=== PATIENT | male | born 1980 ===

== ENCOUNTER 2017-03-26 14:57 | Emergency (ER) | payer BC, OTHER ==
[2017-03-26 15:10] VITALS: BMI 37.3
[2017-03-26 15:12] VITALS: RESP 18; TEMP 98.6
--- NOTE | 2017-03-26 15:52 | ED PDOC ---
Arrival/HPI - General Chief Complaint: Upper Extremity Problem/Injury Time Seen by Provider: 03/26/17 15:41 Historian: Patient - History of Present Illness Narrative History of Present Illness (Text): 03/26/17 15:40 Peyman Strauss is a 37 year old male who presents to the emergency department complaining of bilateral shoulder pain for a month. Patient reports one month ago he slept wrong and when he woke up the pain began and has been constant ever since. He also states there are certain movements or activities that make the pain worse such as steering the wheel and elevating his arms. Patient notes he has not taken any medication for relief. Patient denies fall, paresthesias, focal weakness, sensory deficit. Time/Duration: < month (1 month) Symptom Onset: Sudden Symptom Course: Unchanged Activities at Onset: Sleeping Modifying Factors (Text): pain is worse with movement of elevation Context: Home Associated Symptoms (Text): None Past Medical History - Provider Review Nursing Documentation Reviewed: Yes - Infectious Disease Hx of Infectious Diseases: None - Tetanus Immunization Tetanus Immunization: Unknown - Past Medical History Past Medical History: No Previous - Psychiatric Hx Psychophysiologic Disorder: No Hx Substance Use: Yes - Past Surgical History Past Surgical History: No Previous - Anesthesia Hx Anesthesia: No - Suicidal Assessment Feels Threatened In Home Enviroment: No Family/Social History - Physician Review Nursing Documentation Reviewed: Yes Family/Social History: Unknown Family HX Smoking Status: Never Smoked Hx Alcohol Use: Yes Frequency of alcohol use: Socially Hx Substance Use: Yes Substance used: marijuana Allergies/Home Meds Allergies/Adverse Reactions: Allergies No Known Allergies Allergy (Verified 02/13/15 10:32) Home Medications: Home Meds Medication Instructions Recorded Confirmed No Known Home Med [No Known Home 02/13/15 03/26/17 Med] Review of Systems - Physician Review All systems were reviewed & negative as marked: Yes - Review of Systems Constitutional: absent: Fevers Respiratory: absent: SOB, Cough, Sputum, Wheezing Cardiovascular: absent: Chest Pain Gastrointestinal: absent: Abdominal Pain, Constipation, Diarrhea, Vomiting Genitourinary Male: absent: Dysuria Musculoskeletal: Arthralgias, Other (bilateral shoulder pain) Skin: absent: Rash Neurological: absent: Headache Physical Exam Vital Signs Reviewed: Yes Vital Signs Temp Pulse Resp BP Pulse Ox 03/26/17 17:10 52 L 18 124/67 99 03/26/17 15:12 98.6 F 59 L 18 112/71 98 Temperature: Afebrile Blood Pressure: Normal Pulse: Regular Respiratory Rate: Normal Appearance: Positive for: Well-Appearing, Non-Toxic, Comfortable Pain Distress: None Mental Status: Positive for: Alert and Oriented X 3 - Systems Exam Head: Present: Atraumatic, Normocephalic Pupils: Present: PERRL Extroacular Muscles: Present: EOMI Conjunctiva: Present: Normal Mouth: Present: Moist Mucous Membranes Neck: Present: Normal Range of Motion Respiratory/Chest: Present: Clear to Auscultation, Good Air Exchange. No: Respiratory Distress, Accessory Muscle Use Cardiovascular: Present: Regular Rate and Rhythm, Normal S1, S2. No: Murmurs Abdomen: Present: Normal Bowel Sounds. No: Tenderness, Distention, Peritoneal Signs Back: Present: Normal Inspection Upper Extremity: Present: Normal Inspection, Normal ROM (pain elevation at 90 degrees. normal active and passive ROM), NORMAL PULSES. No: Cyanosis, Edema, Tenderness, Swelling, Erythema, Deformity Lower Extremity: Present: Normal Inspection. No: Edema Neurological: Present: GCS=15, CN II-XII Intact, Speech Normal Skin: Present: Warm, Dry, Normal Color. No: Rashes Psychiatric: Present: Alert, Oriented x 3, Normal Insight, Normal Concentration Medical Decision Making ED Course and Treatment: 03/26/17 Impression: 37 year old male with bilateral shoulder pain for a month. Normal ROM. Neurovascularly intact Plan: -- Left shoulder x-ray -- Right shoulder x-ray -- Toradol -- Reassess and disposition Progress Notes: 03/26/17 17:12 Xrays negative for fracture but show osteoarthritis. Had detailed conversation about importance of following up and outpatient MRI for persistent pain. - RAD Interpretation Radiology Orders: 03/26/17 15:56 SHOULDER LEFT [RAD] Stat SHOULDER RIGHT [RAD] Stat - Medication Orders Current Medication Orders: Discontinued Medications Ketorolac Tromethamine (Toradol) 60 mg IM STAT STA Stop: 03/26/17 15:57 Last Admin: 03/26/17 16:31 Dose: 60 mg - Scribe Statement The provider has reviewed the documentation as recorded by the Scribe 03/26/2017 Delia Pino Provider Scribe Attestation: All medical record entries made by the Scribe were at my direction and personally dictated by me. I have reviewed the chart and agree that the record accurately reflects my personal performance of the history, physical exam, medical decision making, and the department course for this patient. I have also personally directed, reviewed, and agree with the discharge instructions and disposition. Disposition/Present on Arrival - Present on Arrival Any Indicators Present on Arrival: No History of DVT/PE: No History of Uncontrolled Diabetes: No Urinary Catheter: No History of Decub. Ulcer: No History Surgical Site Infection Following: None - Disposition Have Diagnosis and Disposition been Completed?: Yes Diagnosis: Pain of both shoulder joints Disposition: HOME/ ROUTINE Disposition Time: 17:13 Patient Plan: Discharge Condition: GOOD Discharge Instructions (ExitCare): Shoulder Pain (ED) Additional Instructions: Motrin for pain. Follow-up with PMD within 2 days for further evaluation. Return to ED if condition worsens. Referrals: Candi Johnson MD [Primary Care Provider] - Follow up with primary Forms: [employer] (Portuguese)
[2017-03-26 17:16] VITALS: BP 124/67; PULSE 52; O2SAT 99
--- NOTE | 2017-03-27 08:53 | RAD ---
PROCEDURE: Radiographs of the Left Shoulder HISTORY: shoulder pain COMPARISON: No prior. FINDINGS: BONES: Bone alignment and mineralization are normal. There is no acute fracture or bone destruction. JOINTS: There is mild degenerative osteoarthrosis in the acromioclavicular joint with reduced joint space, marginal osteophytes and subarticular cystic changes. The glenohumeral joint is normal. SOFT TISSUES: Normal. OTHER FINDINGS: None. IMPRESSION: Mild degenerative osteoarthrosis in the acromioclavicular joint.
--- NOTE | 2017-03-27 08:53 | RAD ---
PROCEDURE: Radiographs of the Right Shoulder HISTORY: shoulder pain COMPARISON: No prior. FINDINGS: BONES: Bone alignment and mineralization are normal. There is no acute displaced fracture or bone destruction. JOINTS: There is mild degenerative osteoarthrosis in the acromioclavicular and glenohumeral joints with reduced joint spaces and subarticular cystic changes. SOFT TISSUES: Normal. OTHER FINDINGS: None. IMPRESSION: Mild degenerative osteoarthrosis in the acromioclavicular and glenohumeral joints.
== END 2017-03-26 17:20 | disposition home or self-care (01) ==
LOC: ED 14:57
DX: M25.511 Pain in right shoulder (principal); M25.512 Pain in left shoulder
CPT/HCPCS: 73030; 96372; 99283; J1885

== ENCOUNTER 2017-03-30 20:34 | Emergency (ER) | payer BC ==
[2017-03-30 20:35] VITALS: BMI 37.3
[2017-03-30 20:43] VITALS: BP 125/62
--- NOTE | 2017-03-30 20:49 | ED PDOC ---
"Arrival/HPI - General Chief Complaint: Abdominal Pain Time Seen by Provider: 03/30/17 20:45 Historian: Patient - History of Present Illness Narrative History of Present Illness (Text): 03/30/17 20:45 37 y/o male, no significant pmh, nkda, c/o lt. flank pain radiating to the LLQ region x 2 days with no fall or trauma. Aching and sharp pain, radiating to the LLQ region, associated with urinary frequency, no nausea or vomiting, no fever or chills, no chest pain or shortness of breath, no palpitation, no rash, no palpitation, no other medical or psychological complaints. Past Medical History - Provider Review Nursing Documentation Reviewed: Yes - Infectious Disease Hx of Infectious Diseases: None - Tetanus Immunization Tetanus Immunization: Unknown - Past Medical History Past Medical History: No Previous - Psychiatric Hx Psychophysiologic Disorder: No Hx Substance Use: Yes - Past Surgical History Past Surgical History: No Previous - Anesthesia Hx Anesthesia: No - Suicidal Assessment Feels Threatened In Home Enviroment: No Family/Social History - Physician Review Nursing Documentation Reviewed: Yes Family/Social History: Unknown Family HX Smoking Status: Never Smoked Hx Alcohol Use: Yes Hx Substance Use: Yes Substance used: marijuana Allergies/Home Meds Allergies/Adverse Reactions: Allergies No Known Allergies Allergy (Verified 02/13/15 10:32) Review of Systems - Review of Systems Constitutional: absent: Fatigue, Fevers Eyes: absent: Vision Changes ENT: absent: Hearing Changes Respiratory: absent: SOB, Cough Cardiovascular: absent: Chest Pain Gastrointestinal: Abdominal Pain. absent: Diarrhea, Nausea, Vomiting Skin: absent: Rash, Pruritis Neurological: absent: Headache, Dizziness, Focal Weakness Physical Exam Vital Signs Reviewed: Yes Vital Signs Temp Pulse Resp BP Pulse Ox 03/30/17 21:15 98.2 F 76 16 97 03/30/17 20:38 98.2 F 76 18 125/62 99 Temperature: Afebrile Blood Pressure: Normal Pulse: Regular Respiratory Rate: Normal Appearance: Positive for: Well-Appearing, Non-Toxic Pain Distress: Moderate Mental Status: Positive for: Alert and Oriented X 3 - Systems Exam Head: Present: Atraumatic, Normocephalic Pupils: Present: PERRL Extroacular Muscles: Present: EOMI Conjunctiva: Present: Normal Mouth: Present: Moist Mucous Membranes Neck: Present: Normal Range of Motion Respiratory/Chest: Present: Clear to Auscultation, Good Air Exchange. No: Respiratory Distress, Accessory Muscle Use Cardiovascular: Present: Regular Rate and Rhythm, Normal S1, S2. No: Murmurs Abdomen: Present: Tenderness (LLQ tenderness), Normal Bowel Sounds. No: Distention, Peritoneal Signs, Rebound, Guarding Back: Present: Normal Inspection, CVA Tenderness (+lt. cva tenderness) Upper Extremity: Present: Normal Inspection. No: Cyanosis, Edema Lower Extremity: Present: Normal Inspection. No: Edema Neurological: Present: GCS=15, CN II-XII Intact, Speech Normal Skin: Present: Warm, Dry, Normal Color. No: Rashes Psychiatric: Present: Alert, Oriented x 3, Normal Insight, Normal Concentration Medical Decision Making ED Course and Treatment: 03/30/17 20:52 -labs/ua -CT abdomen and pelvis -IVF/toradol -observe and reassess 03/30/17 22:49 -Labs are non-significant -UA show no UTI but there is hematuria -CT abdomen and pelvis bilateral perinephric stranding, a finding that can be nonspecific versus representing acute infectious/inflammatory process/pyelonephritis. Suggestion of striated nephrogram favoring the latter. Correlation with urinalysis recommended. -Pt. feels completely relief with the IVF and toradol -Likely is recently passed stone. -Case/labs/radiology results discussed with DR. hoffman and agreed on outpatient urologist follow up. -Discharge home with naproxen, stay hydrated, bed rest, follow up with your own pmd and urologist within 2 days, return to the ER for any new or worsening signs or symptoms. - Lab Interpretations Lab Results: 03/30/17 20:50 03/30/17 20:50 Lab Results 03/30/17 21:30: Urine Color Yellow, Urine Appearance Clear, Urine pH 6.0, Ur Specific [place] 1.015, Urine Protein 100 H, Urine Glucose (UA) Negative, Urine Ketones Negative, Urine Blood Moderate H, Urine Nitrate Negative, Urine Bilirubin Negative, Urine Urobilinogen 0.2, Ur Leukocyte Esterase Negative, Urine RBC 10 - 15, Urine WBC 0 - 2, Ur Epithelial Cells None, Urine Bacteria Few 03/30/17 20:50: Sodium 142, Potassium 4.3, Chloride 103, Carbon Dioxide 28, Anion Gap 15, BUN 14, Creatinine 1.3, Est GFR ( Amer) > 60, Est GFR (Non- Af Amer) > 60, Random Glucose 106, Calcium 9.4, Total Bilirubin 0.4, AST 26, ALT 50, Alkaline Phosphatase 94, Total Protein 7.4, Albumin 4.2, Globulin 3.2, Albumin/Globulin Ratio 1.3, Lipase 68 03/30/17 20:50: WBC 8.5 D, RBC 4.71, Hgb 13.5 L, Hct 40.0 L, MCV 84.9, MCH 28.7 , MCHC 33.8, RDW 13.3, Plt Count 279, MPV 9.2, Gran % 67.1, Lymph % (Auto) 22.9 , [place] % (Auto) 7.9 H, Eos % (Auto) 1.9, Baso % (Auto) 0.2, Gran # 5.70, Lymph # 2.0, [place] # 0.7 H, Eos # 0.2, Baso # 0.02 I have reviewed the lab results: Yes Interpretation: Abnormal lab values (+hematuria) - RAD Interpretation Radiology Orders: 03/30/17 20:50 ABD & PELVIS IV CONTRAST ONLY [CT] Stat The liver is normal. The spleen is borderline prominent. KEI AWAD | Final Radiology Report CONFIDENTIALITY STATEMENT This report is intended only for use by the referring physician, and only in accordance with law. If you received this in error, call [phone]. Page 2 of 2 The pancreas is normal. No gallstones. No hydronephrosis. There is mild bilateral perinephric stranding. There is suggestion of a faint wedge-shaped area of low attenuation in the posterior right kidney possible striated nephrogram. Punctate hypoattenuating lesion inferior right kidney too small to characterize. Decompressed urinary bladder limiting evaluation. Colonic diverticulosis is present. A normal appendix is identified coronal images 57 through 62. Multiple small lymph nodes in the groins bilaterally. IMPRESSION: Bilateral perinephric stranding, a finding that can be nonspecific versus representing acute infectious/inflammatory process/pyelonephritis. Suggestion of striated nephrogram favoring the latter. Correlation with urinalysis recommended. Borderline prominent spleen. Thank you for allowing us to participate in the care of your patient. Dictated and Authenticated by: Deepthi Harrison MD 03/30/2017 10:26 PM Eastern Time ([place] & [place]) Microeconomics Professor: Radiologist - Medication Orders Current Medication Orders: Discontinued Medications Sodium Chloride (Sodium Chloride 0.9%) 1,000 mls @ 999 mls/hr IV .Q1H1M STA Stop: 03/30/17 21:50 Last Admin: 03/30/17 21:08 Dose: 999 mls/hr Iohexol (Omnipaque 300 100 Ml) Confirm Administered Dose 100 ml IJ .STK-MED ONE Stop: 03/30/17 21:31 Ketorolac Tromethamine (Toradol) 30 mg IVP STAT STA Stop: 03/30/17 20:51 Last Admin: 03/30/17 21:09 Dose: 30 mg - PA / SCRUM MASTER / Resident Statement / has reviewed & agrees with the documentation as recorded. Disposition/Present on Arrival - Present on Arrival Any Indicators Present on Arrival: No History of DVT/PE: No History of Uncontrolled Diabetes: No Urinary Catheter: No History of Decub. Ulcer: No History Surgical Site Infection Following: None - Disposition Have Diagnosis and Disposition been Completed?: Yes Diagnosis: Flank pain, Hematuria, Renal lesion Disposition: HOME/ ROUTINE Disposition Time: 22:51 Patient Plan: Discharge Condition: IMPROVED Additional Instructions: -Discharge home with naproxen, stay hydrated, bed rest, follow up with your own pmd and urologist within 2 days, return to the ER for any new or worsening signs or symptoms. Prescriptions: Naproxen 500 mg PO BID PRN #[id number] tab PRN Reason: Other Referrals: Hernan Rea MD [Staff Provider] - Follow up with primary Forms: [employer] (Moroccan), WORK NOTE"
[2017-03-30] MEDS ORDERED: Sodium Chloride 0.9% 1,000 ML IV STA (20:50)
[2017-03-30 21:09] LABS: BASO # 0.02 K/mm3 (0.0-2.0); BASO % 0.2 % (0.0-3.0); EOS # 0.2 (0.0-0.7); EOS % 1.9 % (1.5-5.0); GRAN # 5.7 (1.4-6.5); GRAN % 67.1 % (50.0-68.0); LYMPH % 22.9 % (22.0-35.0); MEAN CELL VOLUME 84.9 fl (80.0-105.0); MEAN CORPUSCULAR HEMOGLOBIN 28.7 pg (25.0-35.0); MEAN CORPUSCULAR HGB CONC 33.8 g/dl (31.0-37.0); MEAN PLATELET VOLUME 9.2 fl (7.0-11.0); MONO # 0.7 (0.1-0.6); MONO % 7.9 % (1.0-6.0); RED CELL DISTRIBUTION WIDTH 13.3 % (11.5-14.5); WHITE BLOOD COUNT 8.5 10^3/ul (4.5-11.0)
[2017-03-30 21:19] LABS: ALB/GLOB RATIO 1.3 (1.1-1.8); ALKALINE PHOSPHATASE 94 U/L (38-126); ALT/SGPT 50 U/L (7-56); AST/SGOT 26 U/L (17-59); BILIRUBIN,TOTAL 0.4 mg/dL (0.2-1.3); BLOOD UREA NITROGEN 14 mg/dL (7-21); CALCIUM 9.4 mg/dL (8.4-10.5); CARBON DIOXIDE 28 mmol/L (21-33); CHLORIDE 103 mmol/L (98-107); GFR AFRICAN-AMERICAN > 60; GLUCOSE,RANDOM 106 mg/dL (70-110); LIPASE 68 U/L (23-300); POTASSIUM 4.3 mmol/L (3.6-5.0); SODIUM 142 mmol/L (132-148); TOTAL PROTEIN 7.4 g/dL (5.8-8.3)
[2017-03-30] MEDS ORDERED: Iohexol 300 100 ML IJ ONE (21:30)
[2017-03-30 22:03] LABS: URINE BILIRUBIN NEGATIVE (NEGATIVE); URINE BLOOD MODERATE (NEGATIVE); URINE GLUCOSE (UA) NEGATIVE (NEGATIVE); URINE KETONE NEGATIVE (NEGATIVE); URINE LEUKOCYTE ESTERASE NEGATIVE Leu/uL (NEGATIVE); URINE PROTEIN 100 mg/dL (<30 mg/dL); URINE UROBILINOGEN 0.2 E.U./dL (<1 E.U./dL)
[2017-03-30 22:05] LABS: URINE APPEARANCE CLEAR (CLEAR); URINE COLOR YELLOW (YELLOW)
[2017-03-30 22:20] LABS: URINE BACTERIA FEW (NEG); URINE WBC 0 - 2 /hpf (0-6)
--- NOTE | 2017-03-30 22:26 | CT ---
EXAM: CT Abdomen and Pelvis With Intravenous Contrast EXAM DATE/TIME: 03/30/2017 8:50 PM CLINICAL HISTORY: 37 years old, male; Pain; Abdominal pain; Additional info: Lt. Sided flank and llq pain TECHNIQUE: Axial computed tomography images of the abdomen and pelvis with intravenous contrast. All CT scans at this facility use one or more dose reduction techniques, viz.: automated exposure control; ma/kV adjustment per patient size (including targeted exams where dose is matched to indication; i.e. head); or iterative reconstruction technique. Coronal and sagittal reformatted images were created and reviewed. CONTRAST: 100 mL of [id number] administered intravenously. COMPARISON: No relevant prior studies available. FINDINGS: The liver is normal. The spleen is borderline prominent. The pancreas is normal. No gallstones. No hydronephrosis. There is mild bilateral perinephric stranding. There is suggestion of a faint wedge-shaped area of low attenuation in the posterior right kidney possible striated nephrogram. Punctate hypoattenuating lesion inferior right kidney too small to characterize. Decompressed urinary bladder limiting evaluation. Colonic diverticulosis is present. A normal appendix is identified coronal images 57 through 62. Multiple small lymph nodes in the groins bilaterally. IMPRESSION: Bilateral perinephric stranding, a finding that can be nonspecific versus representing acute infectious/inflammatory process/pyelonephritis. Suggestion of striated nephrogram favoring the latter. Correlation with urinalysis recommended. Borderline prominent spleen.
[2017-03-30 23:20] VITALS: PULSE 79; TEMP 98
[2017-03-30 23:21] VITALS: RESP 18; O2SAT 98
== END 2017-03-30 23:21 | disposition home or self-care (01) ==
LOC: ED 20:34
DX: R31.9 Hematuria, unspecified (principal); R10.32 Left lower quadrant pain; N28.9 Disorder of kidney and ureter, unspecified
CPT/HCPCS: 74177; 80053; 81001; 83690; 85025; 96374; 99283; J1885; J7040; Q9967

== ENCOUNTER 2018-04-24 21:04 | Emergency (ER) | payer BC ==
[2018-04-24 21:05] VITALS: BMI 37.3
[2018-04-24] MEDS ORDERED: Sodium Chloride 0.9% 1,000 ML IV STA (21:47)
[2018-04-24 21:50] VITALS: RESP 18
--- NOTE | 2018-04-24 23:37 | ED PDOC ---
Arrival/HPI - General Historian: Patient - History of Present Illness Narrative History of Present Illness (Text): 04/24/18 23:29 38 year old male, no significant past medical history, presents to the emergency room with fever and 2 days of productive cough and body aches. Patient states 2 days ago he began feeling cold symptoms with sore throat, cough, and diffuse body aches. He had a fever of 102 today which brought him into the emergency room. He had been taking Tylenol for symptom alleviation which did help. No sick contacts or recent travel. Denies chills, headache, dizziness, vomiting, shortness of breath, hearing or vision changes, abdominal pain, or urinary symptoms. Time/Duration: < week Symptom Onset: Gradual Symptom Course: Worsening Severity Level: Mild Context: Home <Pradeep Arizmendi - Last Filed: 04/24/18 23:29> <Eliseo Rodney - Last Filed: 04/25/18 00:09> - General Chief Complaint: Fever Time Seen by Provider: 04/24/18 21:08 Past Medical History - Provider Review Nursing Documentation Reviewed: Yes - Infectious Disease Hx of Infectious Diseases: None - Tetanus Immunization Tetanus Immunization: Unknown - Past Medical History Past Medical History: No Previous - Psychiatric Hx Psychophysiologic Disorder: No Hx Substance Use: Yes - Past Surgical History Past Surgical History: No Previous - Anesthesia Hx Anesthesia: No Hx Anesthesia Reactions: No Hx Malignant Hyperthermia: No - Suicidal Assessment Feels Threatened In Home Enviroment: No <Pradeep Arizmendi - Last Filed: 04/24/18 23:29> Family/Social History - Physician Review Nursing Documentation Reviewed: Yes Family/Social History: No Known Family HX Smoking Status: Current Some Days Smoker Hx Alcohol Use: Yes Frequency of alcohol use: Socially Hx Substance Use: Yes Substance used: marijuana <Pradeep Arizmendi - Last Filed: 04/24/18 23:29> Allergies/Home Meds <Pradeep Arizmendi - Last Filed: 04/24/18 23:29> <Eliseo Rodney - Last Filed: 04/25/18 00:09> Allergies/Adverse Reactions: Allergies No Known Allergies Allergy (Verified 02/13/15 10:32) Review of Systems - Review of Systems Constitutional: absent: Fevers Eyes: absent: Vision Changes ENT: absent: Hearing Changes Respiratory: Cough. absent: SOB, Wheezing Cardiovascular: absent: Chest Pain, Palpitations Gastrointestinal: Nausea. absent: Abdominal Pain, Vomiting Genitourinary Male: absent: Dysuria, Hematuria Musculoskeletal: Arthralgias Skin: absent: Rash, Skin Lesions Neurological: absent: Headache, Dizziness Endocrine: absent: Diaphoresis <AbieljerrodPradeep jacobo - Last Filed: 04/24/18 23:29> Physical Exam Vital Signs Reviewed: Yes Vital Signs Temp Pulse Resp BP Pulse Ox 04/24/18 22:50 101.5 F H 04/24/18 21:35 100.4 F H 04/24/18 21:34 100.4 F H 83 18 134/79 95 Temperature: Febrile Blood Pressure: Normal Pulse: Regular Respiratory Rate: Normal Appearance: Positive for: Well-Appearing, Non-Toxic, Comfortable Pain Distress: None Mental Status: Positive for: Alert and Oriented X 3 - Systems Exam Head: Present: Atraumatic, Normocephalic Pupils: Present: PERRL Extroacular Muscles: Present: EOMI Mouth: Present: Dry Pharnyx: Present: Normal. No: ERYTHEMA, EXUDATE, TONSILS ENLARGED Respiratory/Chest: Present: Clear to Auscultation, Good Air Exchange. No: Respiratory Distress, Accessory Muscle Use, Wheezes Cardiovascular: Present: Regular Rate and Rhythm, Normal S1, S2. No: Murmurs Abdomen: No: Tenderness, Distention, Peritoneal Signs Skin: Present: Warm, Dry, Normal Color. No: Rashes Psychiatric: Present: Alert, Oriented x 3, Normal Insight, Normal Concentration <Marleny Arizmendibah - Last Filed: 04/24/18 23:29> Vital Signs Temp Pulse Resp BP Pulse Ox 04/24/18 22:50 101.5 F H 04/24/18 21:35 100.4 F H 04/24/18 21:34 100.4 F H 83 18 134/79 95 <Eliseo Rodney - Last Filed: 04/25/18 00:09> Medical Decision Making ED Course and Treatment: 04/24/18 23:38 38M, no PMH, presents to the emergency department with fever and body aches Tylenol Zofran IVF CXR Rapid flu A/B 04/24/18 23:39 CXR shows right lobe opacity, possible pneumonia - read by attending provider. Zithromax 500mg given in ED 04/24/18 23:42 Please follow up with your primary medical doctor within 3-5 days. Please take antibiotics as prescribed and complete full course. If symptoms worsen, please return to the emergency room. Patient verbalized understanding and agreement of treatment plan Case reviewed and discussed with attending provider - Lab Interpretations Lab Results: Lab Results 04/24/18 22:23: Influenza Typ A,B (EIA) Negative for flu a/b - RAD Interpretation Radiology Orders: 04/24/18 21:47 CHEST PORTABLE [RAD] Stat - Medication Orders Current Medication Orders: Discontinued Medications Acetaminophen (Tylenol 325mg Tab) 650 mg PO STAT STA Stop: 04/24/18 22:43 Last Admin: 04/24/18 22:50 Dose: 650 mg MAR Pain/Vitals Document 04/24/18 22:50 AD (Rec: 04/24/18 22:51 AD [facility] [id number]) Vitals Temperature (97.6 F-99.6 F) 101.5 F Temperature Source Oral Azithromycin (Zithromax) 500 mg PO ONCE STA; Protocol Stop: 04/24/18 23:19 Sodium Chloride (Sodium Chloride 0.9%) 1,000 mls @ 999 mls/hr IV .Q1H1M STA Stop: 04/24/18 22:47 Last Admin: 04/24/18 22:10 Dose: 999 mls/hr eMAR Start Stop Document 04/24/18 22:10 LA (Rec: 04/24/18 22:19 LA [id number]) Intravenous Solution Start Date 04/24/18 Start Time 22:10 End Date 04/24/18 End time 23:11 Total Infusion Time 61 Ondansetron HCl (Zofran Tab) 8 mg PO STAT STA Stop: 04/24/18 21:47 Last Admin: 04/24/18 22:15 Dose: 8 mg <Pradeep Arizmendi - Last Filed: 04/24/18 23:29> ED Course and Treatment: Impression: Pt seen and evaluated with medical laboratory technician. Aware and agree with HPI, clinical findings, plan, and management. Pt, with no significant past medical history, presented for fever, productive cough, sore throat, and body aches. Plan: -- Rapid influenza -- Chest X-Ray -- IV fluids -- Zofran -- Tylenol -- Reassess and disposition Progress Notes: - Lab Interpretations Lab Results: Lab Results 04/24/18 22:23: Influenza Typ A,B (EIA) Negative for flu a/b - RAD Interpretation Radiology Orders: 04/24/18 21:47 CHEST PORTABLE [RAD] Stat - Medication Orders Current Medication Orders: Discontinued Medications Acetaminophen (Tylenol 325mg Tab) 650 mg PO STAT STA Stop: 04/24/18 22:43 Last Admin: 04/24/18 22:50 Dose: 650 mg MAR Pain/Vitals Document 04/24/18 22:50 AD (Rec: 04/24/18 22:51 AD [facility] [place]) Vitals Temperature (97.6 F-99.6 F) 101.5 F Temperature Source Oral Azithromycin (Zithromax) 500 mg PO ONCE STA; Protocol Stop: 04/24/18 23:19 Last Admin: 04/24/18 23:32 Dose: 500 mg Sodium Chloride (Sodium Chloride 0.9%) 1,000 mls @ 999 mls/hr IV .Q1H1M STA Stop: 04/24/18 22:47 Last Admin: 04/24/18 22:10 Dose: 999 mls/hr eMAR Start Stop Document 04/24/18 22:10 LA (Rec: 04/24/18 22:19 LA [id number]) Intravenous Solution Start Date 04/24/18 Start Time 22:10 End Date 04/24/18 End time 23:11 Total Infusion Time 61 Ondansetron HCl (Zofran Tab) 8 mg PO STAT STA Stop: 04/24/18 21:47 Last Admin: 04/24/18 22:15 Dose: 8 mg <Eliseo Rodney - Last Filed: 04/25/18 00:09> - PA / SILK PRESSER / Resident Statement JASPREET has reviewed & agrees with the documentation as recorded. JASPREET has examined the patient and agrees with the treatment plan. <Eliseo Rodney - Last Filed: 04/25/18 00:09> Disposition/Present on Arrival - Present on Arrival Any Indicators Present on Arrival: No History of DVT/PE: No History of Uncontrolled Diabetes: No Urinary Catheter: No History of Decub. Ulcer: No History Surgical Site Infection Following: None - Disposition Have Diagnosis and Disposition been Completed?: Yes Disposition Time: 23:41 Patient Plan: Discharge <Pradeep Arizmendi - Last Filed: 04/24/18 23:29> <Eliseo Rodney - Last Filed: 04/25/18 00:09> - Disposition Diagnosis: Pneumonia Disposition: HOME/ ROUTINE Patient Problems: Current Active Problems Problem Status Onset Pneumonia Acute Condition: GOOD Discharge Instructions (ExitCare): Pneumonia in Adults, Community-Acquired Pneumonia, Adult (DC) Additional Instructions: Please follow up with your primary medical doctor within 3-5 days. Please take antibiotics as prescribed and complete full course. If symptoms worsen, please return to the emergency room. Prescriptions: Azithromycin [Zithromax] 250 mg PO DAILY #4 tab Forms: [employer] (Spanish), WORK NOTE
[2018-04-25 00:57] VITALS: BP 130/78; PULSE 85; TEMP 99.9; O2SAT 100
--- NOTE | 2018-04-25 09:53 | RAD ---
HISTORY: cough, SOB r/o PNA COMPARISON: No prior. TECHNIQUE: Chest, one view. FINDINGS: LUNGS: Right middle lobe opacities suspicious for pneumonia. Please note that chest x-ray has limited sensitivity for the detection of pulmonary masses. PLEURA: No significant pleural effusion identified. No definite pneumothorax . CARDIOVASCULAR: The cardiomediastinal silhouette appears within normal limits of size. OSSEOUS STRUCTURES: No acute osseous abnormality identified. VISUALIZED UPPER ABDOMEN: Unremarkable. OTHER FINDINGS: None. IMPRESSION: Right middle lobe opacity suspicious for pneumonia. Study marked for PA review.
== END 2018-04-24 23:35 | disposition home or self-care (01) ==
LOC: ED 21:04
DX: J18.9 Pneumonia, unspecified organism (principal)
CPT/HCPCS: 71045; 87804; 96360; 99284; J7030